=== PATIENT | female | born 1985 | race Caucasian/White ===

== ENCOUNTER 2021-07-01 10:09 | Emergency (ER) | payer BC, SELFPAY ==
--- NOTE | 2021-07-01 11:37 | HMH.EDUTC ---
[facility] – [place] Disposition Clinical Impression: Viral syndrome Disposition: Home, Self-Care Condition on Discharge: Good Instructions: DI for Viral Syndrome, DI for COVID-19 (Suspected or Confirmed ), Preventing the Spread of Coronavirus Discharge Instructions Additional Instructions: Drink plenty of fluids. Take tylenol or ibuprofen for pain or fever. Take the medications as directed. Follow up with your regular doctor. GO TO THE ER FOR ANY WORSENING SYMPTOMS Quarantine until you know the results of your covid-19 test. Notify your school or workplace of your results and follow their instructions regarding return to work/school. The cough medication (promethazine dm) will make you drowsy, so don't drive or operate heavy machinery after taking it. Prescriptions: Ibuprofen [Ibuprofen 600mg Tablet] 600 mg PO Q6HP PRN #30 tab PRN Reason: Mild Pain Transmission Status: [facility] Promethazine/Dextromethorphan [Promethazine-Dm Syrup] 5 ml PO Q6HP PRN #240 ml PRN Reason: Cough Transmission Status: [facility] Ondansetron [Zofran 4mg ODT] 4 mg PO Q8HP PRN #20 tab PRN Reason: Nausea Transmission Status: [facility] Referrals: Provider,Referral, [Primary Care Provider] - Forms: Work/School Release Time of Disposition: 12:35 Medical Decision Making - Medical Records Medical records reviewed: No: I reviewed the patient's medical records. - Antonio Inquiry Pt receiving controlled substance: No Vital Signs: 07/01/21 11:38 07/01/21 12:42 Temperature 98.8 F 98.8 F Temperature Source Oral Pulse Rate 79 Pulse Rate [Left] 79 Respiratory Rate 18 18 Blood Pressure 107/89 L Blood Pressure [Right Arm] 107/69 L Blood Pressure Mean [Right Arm] 81 02 Sat by Pulse Oximetry 97 - Lab Data Lab results reviewed: Yes: I reviewed the patient's lab results. Lab Results 07/01/21 11:33: Group A Strep Rapid Negative 07/01/21 11:33: Influenza Type A Ag Negative, Influenza Type B Ag Negative Orders (Tests/Meds): ORDERS Category Date Time Status Strep Screen Confirmation Stat Micro 07/01/21 11:33 Received [facility] – [place] HPI - General Stated complaint: dizziness, weakness, body aches Time Seen by Provider: 07/01/21 11:37 - History of Present Illness Provider Complaint: She states that for the past 2 days she has had had body aches, chills, low grade fever, bilateral ear pressure, scratchy sore throat, and a dry cough. - Related Data Previous Rx's Medication Instructions Recorded Ibuprofen [Ibuprofen 600mg 600 mg PO Q6HP PRN #30 tab 07/01/21 Tablet] Ondansetron [Zofran 4mg ODT] 4 mg PO Q8HP PRN #20 tab 07/01/21 Promethazine/Dextromethorphan 5 ml PO Q6HP PRN #240 ml 07/01/21 [Promethazine-Dm Syrup] Allergies Allergy/AdvReac Type Severity Reaction Status Date / Time azithromycin Allergy Verified 07/01/21 11:58 cefaclor [From Ceclor] Allergy Verified 07/01/21 11:58 diphenhydramine Allergy Verified 07/01/21 11:58 [From Benadryl] Penicillins Allergy Verified 07/01/21 11:58 [facility] History - Hepatitis A Screen Attestation statement:: This patient has been screened for Hepatitis A risk factors. I have reviewed the patient's past medical history: Yes ROS Obtained: Yes All systems reviewed & no additional complaints - Constitutional Constitutional: Reports as per HPI - Eyes Eyes: Denies eye discharge - ENT Ears, Nose, Mouth, and Throat: Reports as per HPI - Cardiovascular Cardiovascular: Denies chest pain - Respiratory Respiratory: Reports chest congestion, Reports cough, Denies dyspnea, Denies stridor, Denies wheezing Physical Exam - General General appearance: alert, in no apparent distress - Head Head exam: atraumatic, normocephalic, normal inspection - Eye Eye exam: Present: normal appearance, PERRL, EOMI - ENT ENT exam: Present: normal exam, normal or
[2021-07-01 11:38] VITALS: BP 107/69; PULSE 79; RESP 18; TEMP 37.1; O2SAT 97; BMI 23.8
[2021-07-01 12:02] LABS: Strep Scrn Group A (Rapid) Negative (Negative); UTC Influenza A Antigen Negative (Negative)
[2021-07-01 12:03] LABS: UTC Influenza B Antigen Negative (Negative)
[2021-07-01 12:42] VITALS: BP 107/89; PULSE 79; RESP 18; TEMP 37.1
--- NOTE | 2021-07-02 11:13 | PC.NURSE ---
PATIENT NOTIFIED OF POSITIVE COVID TEST
== END 2021-07-01 13:17 | disposition home or self-care (01) ==
PROVIDERS: Emergency Provider Nurse Practitioner Family
DX: B34.9 Viral infection, unspecified (principal); J02.9 Acute pharyngitis, unspecified
CPT/HCPCS: 87430; 87804; 99203; C9803; G0463; U0003; U0005

== ENCOUNTER 2021-07-08 10:38 | Emergency (ER) | payer BC, SELFPAY ==
[2021-07-08 11:09] VITALS: BP 117/76; PULSE 74; RESP 18; TEMP 37.1; O2SAT 98; BMI 25.0
--- NOTE | 2021-07-08 11:21 | HMH.EDUTC ---
[facility] – [place] Disposition Clinical Impression: Vertigo Disposition: Home, Self-Care Condition on Discharge: Good Instructions: Vertigo (Alternative Therapy), Vertigo, DI for Vertigo, Sore Throat, Scopolamine Transdermal Patch Additional Instructions: One patch behind your ear as needed every 3 days for dizziness or motion sickness *Monitor Temp, Over the counter Motrin or Tylenol as directed/as needed Tylenol every 4 hours and Motrin every 6 hours (as long as your family doctor has told you that you can take it) for fever or pain. and straight to ER if unable to lower temp less than 101.0 after medication given *Warm salt water gargles may help to soothe the throat *Throat Lozenges *Warm fluids like tea with honey may help to soothe the throat *Sleep elevated *Humidifier/Vaporizer Follow up IMMEDIATELY for new or worsening symptoms or no Noticeable improvement over the next 48-72 hours. 911 for difficulty breathing or swallowing Prescriptions: Scopolamine 1 each TD Q72H PRN #3 patch PRN Reason: Dizziness Transmission Status: Pending to [facility] Referrals: Provider,Referral, MD [Primary Care Provider] - Forms: Work/School Release Medical Decision Making - Antonio Inquiry Pt receiving controlled substance: No Antonio was queried for this patient: No Vital Signs: 07/08/21 11:09 Temperature 98.8 F Temperature Source Oral Pulse Rate [Left] 74 Respiratory Rate 18 Blood Pressure [Right Arm] 117/76 Blood Pressure Mean [Right Arm] 89 02 Sat by Pulse Oximetry 98 [facility] [place] HPI - General Stated complaint: covid pos 07/02, dizzy, bilateral ear pain Time Seen by Provider: 07/08/21 11:24 Mode of Arrival: Ambulatory Source of Information: Patient Limitations: No Limitations Description of Symptoms (Recalled from Triage Doc. by RN): pt c/o dizziness, bilateral ear aches, cough and sore throat. pt tested positive for covid last week. 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 - Related Data Previous Rx's Medication Instructions Recorded Ibuprofen [Ibuprofen 600mg 600 mg PO Q6HP PRN #30 tab 07/01/21 Tablet] Ondansetron [Zofran 4mg ODT] 4 mg PO Q8HP PRN #20 tab 07/01/21 Promethazine/Dextromethorphan 5 ml PO Q6HP PRN #240 ml 07/01/21 [Promethazine-Dm Syrup] Scopolamine 1 each TD Q72H PRN #3 patch 07/08/21 Allergies Allergy/AdvReac Type Severity Reaction Status Date / Time azithromycin Allergy Verified 07/01/21 11:58 cefaclor [From Ceclor] Allergy Verified 07/01/21 11:58 diphenhydramine Allergy Verified 07/01/21 11:58 [From Benadryl] Penicillins Allergy Verified 07/01/21 11:58 - Worker's Comp Is this a Worker's Comp case?: No H History - Hepatitis A Screen Drug use history?: No High risk sexual behaviors?: No History of sexually transmitted infection?: No Currently employed?: No Childcare worker?: No Do you have indoor plumbing?: Yes Do you have electricity?: Yes Attestation statement:: This patient has been screened for Hepatitis A risk factors. I have reviewed the patient's past medical history: Yes ROS Obtained: Yes All systems reviewed & no additional complaints, Yes Systems reviewed as appropriate & no additional complaints - Constitutional Constitutional: Reports system reviewed and no additional complaints, except as docu - ENT Ears, Nose, Mouth, and Throat: Reports dizzi
[2021-07-08 11:54] VITALS: BP 117/76; PULSE 74; RESP 18; TEMP 37.1
== END 2021-07-08 11:54 | disposition home or self-care (01) ==
PROVIDERS: Emergency Provider Nurse Practitioner
DX: R42 Dizziness and giddiness (principal); H92.03 Otalgia, bilateral; R05.9 Cough, unspecified
CPT/HCPCS: 99202; G0463

== ENCOUNTER 2021-07-14 15:26 | Emergency (ER) | payer BC, SELFPAY ==
[2021-07-14 17:42] VITALS: BP 102/60; PULSE 69; RESP 14; TEMP 36.8; O2SAT 99; BMI 23.8
--- NOTE | 2021-07-14 17:44 | HMH.EDUTC ---
[facility] – [place] Disposition Clinical Impression: Allergic reaction Qualifiers: Encounter type: initial encounter Qualified Code(s): T78.40XA - Allergy, unspecified, initial encounter Otitis media Qualifiers: Otitis media type: suppurative Chronicity: acute Laterality: bilateral Recurrence: non-recurrent Spontaneous tympanic membrane rupture: without spontaneous rupture Qualified Code(s): H66.003 - Acute suppurative otitis media without spontaneous rupture of ear drum, bilateral Disposition: Home, Self-Care Condition on Discharge: Good Instructions: Middle Ear Infection Additional Instructions: Drink plenty of fluids. Take tylenol or ibuprofen for pain or fever. Take the medications as directed. Follow up with your regular doctor. GO TO THE ER FOR ANY WORSENING SYMPTOMS Prescriptions: levoFLOXacin [Levaquin 500mg tab] 500 mg PO DAILY 7 Days #7 tab [facility]: [facility] methylPREDNISolone [Medrol] 4 mg PO DIRECTED 6 Days #21 packet Transmission [facility] Referrals: Provider,Referral, [Primary Care Provider] - Time of Disposition: 18:48 Medical Decision Making - Medical Records Medical records reviewed: No: I reviewed the patient's medical records. - Antonio Inquiry Pt receiving controlled substance: No Vital Signs: 07/14/21 17:42 07/14/21 18:52 Temperature 98.2 F 98.2 F Temperature Source Oral Pulse Rate 69 Pulse Rate [Left] 69 Respiratory Rate 14 14 Blood Pressure 102/60 L Blood Pressure [Right Arm] 102/60 L Blood Pressure Mean [Right Arm] 74 02 Sat by Pulse Oximetry 99 - Lab Data Lab results reviewed: Yes: I reviewed the patient's lab results. [facility] [place] HPI - General Stated complaint: allergic reaction, rash on L neck Time Seen by Provider: 07/14/21 17:44 - History of Present Illness Provider Complaint: She states that she had covid about 3 weeks ago. She got better from most of her covid-19 symptoms. She was continuing to have ear pain and dizziness so she returned about 4 days ago. She was prescribed scopolomine patches for this. She put one of the patches on yesterday. This morning, she woke up with a rash on her neck and face and blurry vision. She took the patch off immediatly. Since then, her rash and blurry vision has improved. She is continuing to have a rash in the area that the patch was on. - Related Data Previous Rx's Medication Instructions Recorded Ibuprofen [Ibuprofen 600mg 600 mg PO Q6HP PRN #30 tab 07/01/21 Tablet] Ondansetron [Zofran 4mg ODT] 4 mg PO Q8HP PRN #20 tab 07/01/21 Promethazine/Dextromethorphan 5 ml PO Q6HP PRN #240 ml 07/01/21 [Promethazine-Dm Syrup] Scopolamine 1 each TD Q72H PRN #3 patch 07/08/21 levoFLOXacin [Levaquin 500mg 500 mg PO DAILY 7 Days #7 tab 07/14/21 tab] methylPREDNISolone [Medrol] 4 mg PO DIRECTED 6 Days #21 07/14/21 packet Allergies Allergy/AdvReac Type Severity Reaction Status Date / Time azithromycin Allergy Verified 07/01/21 11:58 cefaclor [From Ceclor] Allergy Verified 07/01/21 11:58 diphenhydramine Allergy Verified 07/01/21 11:58 [From Benadryl] Penicillins Allergy Verified 07/01/21 11:58 scopolamine Allergy Verified 07/14/21 18:50 [facility] History - Hepatitis A Screen Attestation statement:: This patient has been screened for Hepatitis A risk factors. I have reviewed the patient's past medical history: Yes ROS Obtained: Yes All systems reviewed & no additional complaints - Constitutional Constitutional: Denies chills, Denies fever(s) - Eyes Eyes: Denies eye discharge, Denies itchy eyes - ENT Ears, Nose, Mouth, and Throat: Denies sore throat - Cardiovascular Cardiovascular: Denies chest pain - Respiratory Respiratory: Denies chest congestion, Reports cough, Denies dyspnea, Denies stridor, Denies wheezing - Gastrointestinal Gastrointestingal: Reports: nausea. Denies: abdominal pain,
[2021-07-14 18:52] VITALS: BP 102/60; PULSE 69; RESP 14; TEMP 36.8
== END 2021-07-14 18:53 | disposition home or self-care (01) ==
PROVIDERS: Emergency Provider Nurse Practitioner Family
DX: H66.003 Acute suppurative otitis media without spontaneous rupture of ear drum, bilateral (principal); T78.40XA Allergy, unspecified, initial encounter
CPT/HCPCS: 99202; G0463